=== PATIENT | female | born 1935 | race Caucasian/White ===

== ENCOUNTER → 2017-10-16 | Outpatient (CLI) | payer MEDICARE, BC ==
--- NOTE | 2017-10-17 12:37 | RAD ---
DATE: 10/16/2017 EXAM: MAMMO ALENA SCREENING BILATERAL HISTORY: Routine screening COMPARISON: 09/04/2016 This study was interpreted with the benefit of Computerized Aided Detection (CAD) The breast parenchyma shows scattered fibroglandular densities. Breast parenchyma level B. FINDINGS: 2-D and 3-D tomosynthesis imaging was performed in CC and MLO projections. No new or enlarging breast densities are seen. There is a benign-appearing intramammary lymph node in the lateral aspect of the left breast. Scattered benign type calcifications are present. No suspicious microcalcifications have developed. IMPRESSION: Stable mammograms without evidence of malignancy. BI-RADS CATEGORY: 2 BENIGN FINDING(S) RECOMMENDED FOLLOW-UP: 12M 12 MONTH FOLLOW-UP PQRS compliance statement: Patient information was entered into a reminder system with a target due date for the next mammogram. Mammography is a sensitive method for finding small breast cancers, but it does not detect them all and is not a substitute for careful clinical examination. A negative mammogram does not negate a clinically suspicious finding and should not result in delay in biopsying a clinically suspicious abnormality. "Our facility is accredited by the [employer] Mammography [employer]."
== END | disposition home or self-care (01) ==
LOC: MAMMO 12:52
PROVIDERS: ATTEND Specialist
DX: Z12.31 Encounter for screening mammogram for malignant neoplasm of breast (principal)
CPT/HCPCS: 77063; 77067

== ENCOUNTER → 2020-03-29 | Outpatient (CLI) | payer MEDICARE, BC ==
--- NOTE | 2020-03-30 09:18 | RAD ---
BILATERAL SCREENING MAMMOGRAM History: Routine screening. Comparison: 04/07/2013, 09/04/2016, 10/16/2017. Technique: Routine bilateral digital mammogram views were obtained. Findings: Breast Tissue Density B : There are scattered areas of fibroglandular density. There are no dominant masses, suspicious microcalcifications, or architectural distortion. IMPRESSION: No mammographic evidence of malignancy. Recommend routine screening. BI-RADS category 1: Negative. The images were reviewed with computer aided detection. Patient information is entered into the reminder system with a target due date for the next screening mammogram. Mammography is the most sensitive method for finding small breast cancers, but it does not detect them all and is not a substitute for careful clinical examination. A negative mammogram does not negate a clinically suspicious finding and should not result in delay in biopsying a clinically suspicious abnormality. "Our facility is accredited by the [employer] Mammography [employer]." Electronically signed by: George Gunter MD (03/30/2020 9:16 AM) [id number]
== END | disposition home or self-care (01) ==
LOC: MAMMO 11:15
PROVIDERS: ATTEND Specialist
DX: Z12.31 Encounter for screening mammogram for malignant neoplasm of breast (principal)
CPT/HCPCS: 77067

== ENCOUNTER → 2020-12-18 | Outpatient (CLI) | payer MEDICARE, BC ==
--- NOTE | 2020-12-18 14:30 | RAD ---
4 views left knee 12/18/2020 11:35 AM Indication: Reason: LEFT KNEE PAIN / Spl. Instructions: / History: Comparison: None Findings: No evidence of acute fracture or dislocation is seen. There is moderate degenerative change of the left knee including medial compartment joint space narrowing with mild subchondral sclerosis involving tibial plateau. Mild medial compartment tibial and femoral osteophytosis is seen. There is possible small joint effusion. Probable meniscal calcification noted in the medial and lateral joint compartments. Patellofemoral joint space are relatively preserved. IMPRESSION: 1.Degenerative changes of the left knee 2. Possible small joint effusion Electronically signed by: Latrell Guo MD (12/18/2020 2:28 PM) [id number]
== END ==
LOC: DXRAD 11:25
PROVIDERS: ATTEND Specialist
DX: M17.12 Unilateral primary osteoarthritis, left knee (principal); M25.462 Effusion, left knee
CPT/HCPCS: 73564

== ENCOUNTER → 2021-02-26 | Outpatient (CLI) | payer MEDICARE, BC ==
--- NOTE | 2021-02-26 11:51 | RAD ---
EXAM: Right hip, 2 views. HISTORY: Pain. COMPARISON: None. FINDINGS: 2 views of the right hip are obtained. There is no fracture, dislocation or subluxation. Th ere is mild marginal femoral head spurring. There is degenerative change at the lumbosacral junction, not formally assessed on this exam. IMPRESSION: Mild right hip osteoarthritis. Electronically signed by: Farida Bryant MD (02/26/2021 11:49 AM) [id number]
== END ==
LOC: RAD 11:05
PROVIDERS: ATTEND Specialist
DX: M16.11 Unilateral primary osteoarthritis, right hip (principal); M76.891 Other specified enthesopathies of right lower limb, excluding foot
CPT/HCPCS: 73502